=== PATIENT | male | born 1960 | race African-American/Black ===

== ENCOUNTER 2018-12-10 08:26 | Emergency (ER) | payer OTHER, MEDICARE ==
[~2018-12-10] VITALS: Ht 182.9 cm; Wt 96.9 kg
[~2018-12-10 08:26] MED LIST: AMLO-150 PO; ASPI325T17 PO; ATOR10TA PO; BENA40TA55 PO; CARV-39 PO; CLON0.1T22 PO; ESOM20CA PO; OXYC-307 PO; OXYC30TA66 PO; SIMV20TA PO; TAPE50TA9 PO
--- NOTE | 2018-12-10 08:54 | NUR ---
PT TO ROOM. AMBULATES WITH STEADY GAIT. IN GOWN ON BP, O2, AND CARDIAC MONITORING.
[2018-12-10] MEDS ORDERED: NITROGLYCERIN SINGLE TAB 0.4 MG SL ONE (09:24)
[2018-12-10] MEDS ORDERED: KETOROLAC 30 MG/1 ML ONE (09:24)
[2018-12-10] MEDS ORDERED: METOCLOPRAMIDE 5 MG/ML, 2ML ONE (09:24)
[2018-12-10] MEDS ORDERED: DIPHENHYDRAMINE 50 MG/ML, 1ML ONE (09:24)
[2018-12-10] MEDS ORDERED: ASPIRIN 81 MG TABLET CHEW ONE (09:25)
[2018-12-10] MEDS ORDERED: SODIUM CHLORIDE FLUSH 10ML SYR IVF ONE (09:30)
[2018-12-10] MEDS ORDERED: ASPIRIN 81 MG TABLET CHEW PO ONE (09:30)
[2018-12-10] MEDS ORDERED: NITROGLYCERIN 0.4 MG BOTTLE (25 TABS) SL ONE (09:30)
[2018-12-10] MEDS ORDERED: DIPHENHYDRAMINE 50 MG/ML, 1ML IVPush ONE (09:30)
[2018-12-10] MEDS ORDERED: KETOROLAC 30 MG/1 ML IVPush ONE (09:30)
[2018-12-10] MEDS ORDERED: METOCLOPRAMIDE 5 MG/ML, 2ML IVPush ONE (09:30)
[2018-12-10 09:45] LABS: BASOPHILS # (AUTO) 0.03 x10^3/uL (0-0.1); BASOPHILS % (AUTO) 1 % (0-1); EOSINOPHILS # (AUTO) 0.04 x10^3/uL (0-0.4); EOSINOPHILS % (AUTO) 1 % (1-7); LYMPHOCYTES # (AUTO) 1.43 x10^3/uL (1-3.4); LYMPHOCYTES % (AUTO) 21 % (22-44); MD NO; MEAN CORPUSCULAR HEMOGLOBIN 28.1 pg (27.5-34.5); MEAN CORPUSCULAR HGB CONC 32.8 g/dL (33.2-36.2); MEAN CORPUSCULAR VOLUME 85.7 fL (81-97); MONOCYTES # (AUTO) 0.51 x10^3/uL (0.2-0.8); MONOCYTES % (AUTO) 8 % (2-9); NEUTROPHILS # (AUTO) 4.79 x10^3/uL (1.8-6.8); NEUTROPHILS % (AUTO) 70 % (42-75); PLATELET COUNT 199 x10^3/uL (130-400); RED BLOOD COUNT 5.17 x10^6/uL (4.38-5.82); RED CELL DISTRIBUTION WIDTH 13.3 % (9.4-14.8)
[2018-12-10 09:54] LABS: ALBUMIN 3.8 g/dL (3.4-5.0); ANION GAP 9 mmol/L (5-15); CALCIUM 9.4 mg/dL (8.5-10.1); CHLORIDE 108 mmol/L (98-107); CREATININE 0.96 mg/dL (0.7-1.3)
[2018-12-10 09:57] LABS: TROPONIN I 0.017 ng/mL (0.000-0.045)
[2018-12-10] MEDS ORDERED: SODIUM CHLORIDE 0.9% 1,000ML IVBOLUS ONE (10:00)
[2018-12-10] MEDS ORDERED: DEXAMETHASONE 4 MG/ML, 5ML ONE (10:16)
[2018-12-10 10:25] VITALS: BP 130/83
--- NOTE | 2018-12-10 10:26 | NUR ---
PT UP TO BATHROOM. PT D/C'D [employer]ICER AND REFUSES TO STAY IN BED AND KEEP MONITORING EQWUIPMENT ON. UPON ENTERING ROOM PT NOTIFIED THIS RN THAT THE IV "FELL OUT". PROVIDER MADE AWARE.
[2018-12-10] MEDS ORDERED: DEXAMETHASONE 4 MG/ML, 1ML IVPush SCH (10:30)
[2018-12-10] MEDS ORDERED: OXYcodone/APAP 10/325MG TABLET ONE (10:50)
[2018-12-10] MEDS ORDERED: OXYcodone/APAP 10/325MG TABLET PO ONE (11:00)
== END 2018-12-10 11:13 | disposition left against medical advice (07) ==
LOC: ED 10:09 → UNDOADMIN 11:00 → EDIP 11:00 → ED 11:13
DX: R07.89 Other chest pain (principal); G43.909 Migraine, unspecified, not intractable, without status migrainosus; I11.9 Hypertensive heart disease without heart failure; I25.2 Old myocardial infarction; I42.9 Cardiomyopathy, unspecified
CPT/HCPCS: 36415; 71046; 80048; 82040; 83880; 84484; 85025; 93005; 96374; 96375; 99284; J1100; J1200; J1885; J2765

== ENCOUNTER → 2019-01-21 | Outpatient (CLI) | payer OTHER, MEDICARE | END | disposition home or self-care (01) | LOC: CFH 07:58 | PROVIDERS: ATTEND Internal Medicine Cardiovascular Disease | DX: I34.0 Nonrheumatic mitral (valve) insufficiency (principal); I11.9 Hypertensive heart disease without heart failure; I42.9 Cardiomyopathy, unspecified; E78.5 Hyperlipidemia, unspecified; E11.9 Type 2 diabetes mellitus without complications | CPT/HCPCS: 93306 ==